=== PATIENT | female | born 1985 | race Asian ===

== ENCOUNTER 2023-10-28 10:04 | Outpatient (AMB) | payer OTHER, SELFPAY ==
--- NOTE | 2023-10-28 10:08 | A.OFFPC_ITS ---
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 Allergies No Known Allergies Allergy (Verified 10/28/23 11:02) Medication List - Last Reconciled 10/28/23 by Silas Nye MD ascorbate calcium (vitamin C) 500 mg PO DAILY folic acid 1 mg PO DAILY multivitamin 1 tab PO DAILY zinc acetate (Galzin) 50 mg PO DAILY Tobacco use date assessed: 10/28/23 Dental Screening Dental Screen Date: 10/28/23 Did you have a dental visit in the last 12 months?: No Did you have a dental problem in the last 6 months where you did not have access to dental care?: No Was dental information given to patient?: No 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 HPI Details Patient comes in today for her annual physical examination and to establish care - she is a new patient to the practice States that she moved here to the [facility] from the [facility] back in December 2021 but spent some time down in the [facility] ([place], [place]) before moving up here to [facility] She now works at the [employer] in [place] (swing shift); 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 [employer] Patient states that she is generally healthy and other than her miscarriage last January 2023, she has no significant medical or health issues and she currently feels okay She denies any headaches or dizziness Denies any chest pains, no SOB No nausea/vomiting, no abdominal pain No change in bowel habits noted She denies any acute urinary symptoms [facility] Medical History (Updated 10/28/23 @ 12:24 by Silas Nye MD) Type B blood, Rh positive History of miscarriage (~01/2023) Surgical History (Updated 10/28/23 @ 11:47 by Silas Nye MD) No pertinent past surgical history Family History Mother No problems noted. Brother No problems noted. Social History Housing: Apartment Patient Tobacco Use Status: Current someday Tobacco user Tobacco use type: Smokeless Tobacco e-Cigarette/Vaping Use: Currently Using Second Hand Smoke Exposure: Yes service: No Current occupational status: employed Cognitive needs: No Hearing needs: No Vision needs: No Questionnaire PHQ-9 Over the last 2 weeks, how often have you been bothered by any of the following problems? 1. Little interest or pleasure in doing things: not at all 2. Feeling down, depressed, or hopeless: not at all 3. Trouble falling or staying asleep, or sleeping too much: not at all 4. Feeling tired or having little energy: not at all 5. Poor appetite or overeating: not at all 6. Feeling bad about yourself - or that you are a failure or have let yourself or your family down: not at all 7. Trouble concentrating on things, such as reading the newspaper or watching television: not at all 8. Moving or speaking so slowly that other people could have noticed. Or the opposite - being so fidgety or restless that you have been moving around a lot more than usual: not at all 9. Thoughts that you would be better off or of hurting yourself in some way: not at all Total score: 0 Depression Screening Interpretation: Negative Depression Screening Done: Yes 78987 - PHQ-9 Billing: Yes Source: Developed by Drs. Anthony Tan, Irene Miller, Migue Cortez and colleagues, with an educational fernando from [employer]. Thrive Questionnaire Date Thrive assessed: 10/28/23 I am a: Patient What is your living situation today?: I have a steady place to live Within the past 12 months, did the food you bought not last and you didn't have the money to get more?: Never true Within the past 12 months, did you worry whether your food would run out before you got money to buy more?: Never true Do you have trouble paying for medicines?: No Do you have trouble getting transportation to medical appointments?: No Do you have trouble paying your heating and electricity bill?: No Do you have trouble taking care of your child, family member or friend?: No Do you have trouble with day-to-day activities such as bathing, preparing meals, shopping, managing finances, etc.?: No Are you currently unemployed and looking for a job?: No Are you interested in more education?: No Currently or been in a relationship where the following occur: no concerns reported THRIVE Score: 0 AUDIT C Alcohol Use Questionnaire (AUDIT-C) 1. How often do you have a drink containing alcohol?: Monthly or less 2. How many drinks containing alcohol do you have on a typical day when you are drinking?: 1 or 2 3. How often do you have six or more drinks on one occasion?: Never Total Score: 1 Score Reviewed/Action Taken: Yes ASHLYN-7 AMB Questionnaire ASHLYN-7 Date ASHLYN - 7 assessed: 10/28/23 Feeling nervous, anxious, or on edge: 0 = Not at all Not being able to stop or control worryin = Not at all Worrying too much about different things: 0 = Not at all Trouble relaxin = Not at all Being so restless that it is hard to sit still: 0 = Not at all Becoming easily annoyed or irritable: 0 = Not at all Feeling afraid as if something awful might happen: 0 = Not at all Total ASHLYN-7 score (0-4 normal; 5-9 mild; 10-14 moderate; 15-21 severe): 0 Source: Developed by Drs. Anthony Tan, Irene Miller, Migue Cortez and colleagues, with an educational fernando from [employer]. Review of Systems Const Denies chills, Denies fatigue, Denies fever(s), Denies headache(s) and Denies malaise Eyes Denies blurry vision, Denies change in vision, Denies irritation and Denies itchy eyes ENT Denies dysphagia, Denies dizziness, Denies otalgia, Denies headache(s), Denies nasal congestion, Denies neck pain, Denies odynophagia, Denies sinus pain and Denies sore throat Card Denies chest pain, Denies rapid heart rate, Denies irregular heart rhythm, Denies palpitations and Denies dyspnea Resp Denies chest congestion, Denies cough, Denies dyspnea and Denies wheezing GI Denies abdominal pain, Denies bloating, Denies constipation, Denies dysphagia, Denies heartburn, Denies diarrhea, Denies nausea, Denies odynophagia and Denies vomiting Denies hematuria, Denies urinary frequency, Denies dysuria, Denies urinary incontinence and Denies urinary urgency Musc Denies back pain, Denies arthralgias, Denies joint swelling, Denies muscle weakness and Denies neck pain Skin/Breast Denies breast pain, Denies breast mass, Denies change in pigmentation, Denies lesions, Denies rash and Denies unusual bruising Neuro Denies dizziness, Denies headache(s) and Denies paresthesias Psych Denies anxiety and Denies depression Endo Denies fatigue and Denies palpitations Moshe/Lymph Denies easy bruising Aller/Immun Denies itchy eyes and Denies wheezing Physical exam (Primary Care) Vital Signs: Last Vital Signs Pulse 70 10/28/23 10:09 BP 108/62 10/28/23 10:09 Pulse Ox 98 10/28/23 10:09 Oxygen Delivery Method Room Air 10/28/23 10:09 BMI result Body Mass Index 22.5 Tobacco/Smoking Status: Tobacco use Status Tobacco use date assessed 10/28/23 10/28/23 10:21 Patient Tobacco Use Status Current someday Tobacco 10/28/23 10:21 Tobacco use type Smokeless Tobacco 10/28/23 10:21 e-Cigarette/Vaping Use Currently Using 10/28/23 10:21 PHQ-9: PHQ-9 Score PHQ-9: Total score 0 10/28/23 10:21 Depression Screening Interpretation: Negative Thrive Assessment: Date of Thrive Assessment Date Thrive assessed 10/28/23 10/28/23 10:21 Currently or been in a relationship where the following occur: no concerns reported Const General: no acute distress, alert and awake Orientation/consciousness: patient oriented x3 HENMT Head: Yes normocephalic and Yes atraumatic Ears: external ears normal, TM's normal bilaterally and EAC's normal General nose exam: No nasal discharge present Face and sinus: Yes normal facial exam and Yes sinuses nontender Teeth and gingiva: dentition normal Throat: Yes posterior oropharynx normal and Yes tonsils normal (no TP congestion) Eyes Eyelids: Yes eyelids normal Conjunctivae: conjunctivae normal Pupils: Equal, round and reactive pupils present EOM: EOMs intact bilaterally Neck Neck: Yes no lymphadenopathy and Yes supple Thyroid: Thyroid normal Resp Auscultation: clear to auscultation bilaterally, no rales and no wheezes Cardio Rate: regular rate Rhythm: regular rhythm Heart sounds: no murmurs GI Palpation (GI): Soft to palpation, nontender and No hepatosplenomegaly present Auscultation: normal bowel sounds General: Yes no CVA tenderness Back/Spine/Pelvis Back: no CVA tenderness Thoracic/Lumbar Spine: thoracic and lumbar spine normal to inspection Skin Lesions: no lesions Rashes: no rashes Neuro General: patient oriented x3, moves all extremities, no focal motor deficits and CN's II-XI intact bilaterally Cranial nerves: Yes Equal, round and reactive pupils present Cognition (Neuro): normal cognition Gait exam (Neuro): Normal gait present Extrem General: Yes no clubbing, cyanosis or edema Assessment and Plan Assessment & Plan (1) Annual physical exam: Code(s): Z00.00 - Encounter for general adult medical examination without abnormal findings Plan: Check labs - patient is advised that we will reach out to her if any of her labs come back with unusual or unexpected results Have also discussed with patient that she should perform self breast exam regularly and as she has no increased risks, can start annual mammography at 41 yrs of age as per current recommendations (2) History of miscarriage: Code(s): Z87.59 - Personal history of other complications of , childbirth and the puerperium Plan: Patient suffered a miscarriage back in January 2023, which appeared to be due to premature rupture of membranes and chorioamnionitis She has been advised to see OB immediately for exam if she plans to have children and gets again (3) Cervical cancer screening: Code(s): Z12.4 - Encounter for screening for malignant neoplasm of cervix Plan: She is requesting for a referral to gynecology for routine pap smear and gynecology exam - [facility] Plan To return in 1 year for her next annual physical examination Orders: Orders Complete Blood Count Auto Diff Today D64.9 - Anemia, unspecified, Z00.00 - Encounter for general adult medical examination without abnormal findings Comprehensive Met. Panel Today Z00.00 - Encounter for general adult medical examination without abnormal findings Vitamin D 25-OH Total Today E55.9 - Vitamin D deficiency, unspecified, Z00.00 - Encounter for general adult medical examination without abnormal findings Cholesterol Today Z00.00 - Encounter for general adult medical examination without abnormal findings TSH reflex Free T4 Today E78.00 - Pure hypercholesterolemia, unspecified, Z00.00 - Encounter for general adult medical examination without abnormal findings UA CC w/rflx Micro + Cult Today R30.0 - Dysuria, Z00.00 - Encounter for general adult medical examination without abnormal findings Referrals INVESTMENT BANKING MANAGER Referral Z12.4 - Encounter for screening for malignant neoplasm of cervix Coding Level of Care Code New Pt Prev Care 18-39yr([id number] Diagnoses Annual physical exam Z00.00 History of miscarriage Z87.59 Cervical cancer screening Z12.4
[2023-10-28 10:09] VITALS: BP 108/62; PULSE 70; O2SAT 98; BMI 22.5
== END 2023-10-28 11:23 | disposition home or self-care (01) ==
PROVIDERS: PCP Internal Medicine; Visit Provider Internal Medicine
DX: Z00.00 Encounter for general adult medical examination without abnormal findings (principal); Z87.59 Personal history of other complications of pregnancy, childbirth and the puerperium; Z12.4 Encounter for screening for malignant neoplasm of cervix
CPT/HCPCS: 99385

== ENCOUNTER 2023-10-28 11:30 | Outpatient (REF) | payer OTHER, SELFPAY ==
[2023-10-28 12:35] LABS: MANUAL DIFF FLAG NO
[2023-10-28 12:39] LABS: Basophils Percent Auto 0.6 % (0-2); Eosinophils Absolute Auto 0.2 X10*3/uL (0.0-0.4); Eosinophils Percent Auto 2.1 % (0-4); Hematocrit 43.4 % (37.0-47.0); Hemoglobin 14.9 g/dl (12.0-16.0); Imm Gran Abs Auto 0.03 X10*3/uL (0.00-0.03); Imm Gran Pct Auto 0.4 % (0.0-0.4); Lymphocytes Absolute Auto 1.5 X10*3/uL (1.2-4.9); Mean Corpuscular HGB Conc 34.3 g/dl (31.0-35.0); Mean Corpuscular Hemoglobin 30.4 pg (27.0-33.0); Mean Corpuscular Volume 88.6 fL (80.0-98.0); Mean Platelet Volume 9.1 fL (9.4-12.3); Monocytes Absolute Auto 0.5 X10*3/uL (0.1-1.2); Neutrophils Absolute Auto 4.9 x10*3/uL (2.0-8.3); Neutrophils Percent Auto 68.9 % (45-73); Platelet Count 291 X10*3/uL (160-400); Red Cell Distribution Width 12.4 % (11.0-16.0); White Blood Count 7.2 X10*3/uL (4.8-10.8)
[2023-10-28 12:44] LABS: Appearance Urine Clear; Color Urine Yellow; Glucose Urine UA Negative (Negative); Leukocyte Esterase Urine Negative (Negative); Nitrite Urine Negative (Negative); Urine Blood Negative (Negative); Urine Ketones Negative (Negative); Urine Protein Negative (Neg-Trace)
[2023-10-28 13:54] LABS: Alanine Aminotransferase 19 U/L (0-31); Albumin Level 4.4 g/dL (3.5-5.0); Alkaline Phosphatase 41 U/L (39-117); Anion Gap 11 (12-20); Aspartate Amino Transferase 22 U/L (5-31); Bilirubin Total 0.3 mg/dL (0.0-1.0); Blood Urea Nitrogen 10 mg/dL (9-16); Calcium 9.3 mg/dL (8.4-10.2); Carbon Dioxide 24 mmol/L (22-29); Chloride 108 mmol/L (96-108); Cholesterol 191 mg/dL (<200); Estimated Glomerular Filt Rate > 60; Glucose Random 88 mg/dL (60-115); Potassium 4.4 mmol/L (3.3-5.1); Sodium 139 mmol/L (135-145); Total Protein 7.9 g/dL (6.5-8.0)
[2023-10-28 14:02] LABS: TSH reflex Free T4 0.58 uIU/mL (0.32-4.0)
== END 2023-10-28 11:31 | disposition home or self-care (01) ==
LOC: HO.LAB 11:30
PROVIDERS: PCP Internal Medicine; Visit Provider Internal Medicine
DX: Z00.00 Encounter for general adult medical examination without abnormal findings (principal); D64.9 Anemia, unspecified; R30.0 Dysuria; E55.9 Vitamin D deficiency, unspecified; E78.00 Pure hypercholesterolemia, unspecified
CPT/HCPCS: 36415; 80053; 81003; 82306; 82465; 84443; 85025

== ENCOUNTER 2023-12-23 10:25 | Outpatient (AMB) | payer OTHER, SELFPAY ==
--- NOTE | 2023-12-23 10:34 | MHC.OFFVIS ---
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 She immigrated from the [facility] a year to go she and her are seeking they got within the last year. Her is a nurse at [facility] she works at the [employer] in the [employer] she works swing shift. he works nights. She is seeking and taking vitamins with folic acid. Last January she had ruptured membranes in the middle of the night around 19 weeks and ended up at [facility] with an infection and lost the . When I shared with her that if she became again she should immediately seek care at [facility] in case she needed a cerclage she says that they told her the exact same thing at [facility].. Before she left the [facility] she was seen by many OB GYNs and she said that when she was getting and seeking a the oil field worker there gave her letrozole to take on the 2nd day of her menstrual cycle every month in order to help her get . She has 26-29 day cycles she follows it on her in the sathish can tell when she is ovulating but she is not quite sure though she does on questioning think that she gets what I described as fertile type mucus. She is otherwise healthy [facility] Medical History Type B blood, Rh positive History of miscarriage (~01/2023) Surgical History No pertinent past surgical history Family History Mother No problems noted. Brother No problems noted. Social History Housing: Apartment Patient Tobacco Use Status: Current someday Tobacco user Tobacco use type: Smokeless Tobacco e-Cigarette/Vaping Use: Currently Using Second Hand Smoke Exposure: Yes service: No Current occupational status: employed Cognitive needs: No Hearing needs: No Vision needs: No Female Reproductive History Menstrual Age of Menarche: 14 Duration of menses: 3-5 days Date of last menstrual period: 11/30/23 control method: none Total pregnancies: 1 Date of last pap smear: 07/26/21 (neg.per pt) History of abnormal pap smear: No Physical Exam Vital Signs: Last Vital Signs BP 118/68 12/23/23 10:38 BMI result Body Mass Index 23.8 Const General: healthy appearing, comfortable, no acute distress, well developed and alert Nutritional Appearance: average body habitus Orientation/consciousness: patient oriented x3 Limitations: no limitations HEENT Head: Yes normocephalic Neck Neck: Yes normal visual inspection Chest Chest palpation & inspection: normal inspection of the chest Breast/axilla inspection: normal inspection of the breasts and normal inspection of the axillae Breast/axilla palpation: normal palpation of the breasts and normal palpation of the axillae Resp Effort & Inspection: normal respiratory effort GI Inspection: Yes normal to inspection, No Abdominal wall edema and No distended Palpation (GI): Soft to palpation and nontender Other: Normal limits multiparous cervix pink smooth mobile nontender uterus feels slightly bulky retroverted versus shortened. Mobile nontender adnexa nontender good tone with Kegel. We will obtain ultrasound to assess for fibroids. General: Yes bladder normal to palpation External Female Exam: normal external appearance and normal appearance of the urethra Speculum Exam - Vagina: normal appearance of the vagina, normal palpation and normal vaginal discharge Speculum Exam - Cervix: normal appearance of the cervix, normal palpation and nontender Bimanual exam- vagina & uterus: normal bimanual exam, normal palpation, uterine size normal, bladder normal to palpation, consistency normal, normal palpation, uterine mobility normal, uterine shape normal, No Cervical tenderness present, non-tender and no cervical motion tenderness Bimanual Exam- Adnexa, other: normal adnexae, no masses, normal and No adnexal tenderness Neuro General: patient oriented x3 Assessment & Plan Assessment & Plan (1) History of miscarriage: Onset Date: ~01/2023 Comment: 01/2023 - premature rupture of membranes (PPROM) with unknown onset of labor; leakage of amniotic fluid; chorioamnionitis; Patient seeking highly recommend patient care [facility] immediately discovery of and seek assessment for cervical incompetency. Code(s): Z87.59 - Personal history of other complications of , childbirth and the puerperium Category: Medical (2) Cervical cancer screening: Code(s): Z12.4 - Encounter for screening for malignant neoplasm of cervix Category: Medical (3) Well woman exam with routine gynecological exam: Code(s): Z01.419 - Encounter for gynecological examination (general) (routine) without abnormal findings Category: Medical (4) Bulky or enlarged uterus: Comment: vs only retroverted Code(s): N85.2 - Hypertrophy of uterus Category: Medical (5) Patient desires : Code(s): Z31.9 - Encounter for procreative management, unspecified Category: Medical Plan 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 She immigrated from the [facility] a year to go she and her are seeking they got within the last year. Her is a nurse at [facility] she works at the [employer] in the [employer] she works swing shift. he works nights. She is seeking and taking vitamins with folic acid. Last January she had ruptured membranes in the middle of the night around 19 weeks and ended up at [facility] with an infection and lost the . When I shared with her that if she became again she should immediately seek care at [facility] in case she needed a cerclage she says that they told her the exact same thing at [facility].. Before she left the [facility] she was seen by many OB GYNs and she said that when she was getting and seeking a the oil field worker there gave her letrozole to take on the 2nd day of her menstrual cycle every month in order to help her get . She has 26-29 day cycles she follows it on her in the sathish can tell when she is ovulating but she is not quite sure though she does on questioning think that she gets what I described as fertile type mucus. She is otherwise healthy,. I am ordering a pelvic ultrasound to double check on her uterus and ensure that there was no fibroid or any other issue as it does feel slightly bulky. It may just be small and retroverted. We will have a visit after to review. I recommend she continue with the vitamins I told her that if she needed or was interested in seeking advice for infertility and infertility drugs she would definitely need to seek care at [facility] to have this kind of discussion and also in additionally if she does get she should immediately seek care at [facility] and I gave her a list of practices. The reason this is so important for her is because of her particular history with the P prom at 19 weeks with results to chorioamnionitis with 5 day hospitalization then loss at 19 weeks. If it was assessed early in her that she was in need of a cervical cerclage that would need to be assessed and accomplished extremely early in the and attempting transfer of care, if she initiated care here, would prevent getting there in time. I will see her after the ultrasound to review it I also reviewed with her signs and symptoms of ovulation and suggest she take advantage of it she is most likely in luteal phase currently. Orders: Orders US pelvic and transvaginal Today N85.2 - Hypertrophy of uterus, Z01.419 - Encounter for gynecological examination (general) (routine) without abnormal findings, Z12.4 - Encounter for screening for malignant neoplasm of cervix, Z87.59 - Personal history of other complications of , childbirth and the puerperium Coding Level of Care Code Est Pt Prev Care 18-39y([id number]) Diagnoses History of miscarriage Z87.59 Cervical cancer screening Z12.4 Well woman exam with routine gynecological exam Z01.419 Bulky or enlarged uterus N85.2 Patient desires Z31.9
[2023-12-23 10:38] VITALS: BP 118/68; BMI 23.8
== END 2023-12-23 11:37 | disposition home or self-care (01) ==
LOC: HO.HWSM 10:25
PROVIDERS: PCP Internal Medicine; Visit Provider Advanced Practice Midwife
DX: Z01.419 Encounter for gynecological examination (general) (routine) without abnormal findings (principal); N85.2 Hypertrophy of uterus; Z31.9 Encounter for procreative management, unspecified
CPT/HCPCS: 99395

== ENCOUNTER 2023-12-23 10:25 | Outpatient (REF) | payer OTHER, SELFPAY ==
[2023-12-24 06:48] LABS: CT PCR NOT DETECTED (Not Detect.); NG PCR NOT DETECTED (Not Detect.)
[2023-12-24 11:36] LABS: Bacterial Vaginosis PCR NEGATIVE (Negative); Candida Group PCR NOT DETECTED (Not Detect); Candida glab krusei PCR NOT DETECTED (Not Detect); Trichomonas vaginalis PCR NOT DETECTED (Not Detect)
[2023-12-27 14:54] LABS: HPV mRNA E6/E7 Not Detected (Not Detected)
== END 2023-12-23 10:26 | disposition home or self-care (01) ==
LOC: HO.LAB 10:25
PROVIDERS: PCP Internal Medicine; Visit Provider Advanced Practice Midwife
DX: N89.8 Other specified noninflammatory disorders of vagina (principal); Z20.2 Contact with and (suspected) exposure to infections with a predominantly sexual mode of transmission; Z11.51 Encounter for screening for human papillomavirus (HPV)
CPT/HCPCS: 0352U; 36415; 87491; 87591; 87624; 88175

== ENCOUNTER 2023-12-30 11:38 | Outpatient (REF) | payer OTHER, SELFPAY ==
--- NOTE | ~2023-12-30 | US_ITS ---
EXAMINATION: US PELVIS CLINICAL INFORMATION: General routine, last menstrual period 12/25/2023, denies pain. COMPARISON: None available. TECHNIQUE: Ultrasound of the pelvis is performed using both transabdominal and transvaginal transducers along with Doppler. Transvaginal imaging is performed due to inadequate visualization transabdominally. FINDINGS: The uterus is retroverted and measures 11.1 x 5.4 x 7.6 cm. Endometrial thickness is 6 mm. Right ovary measures 3.2 x 1.6 x 1.7 cm, volume 4.6 mL. Left ovary measures 3.8 x 1.5 x 1.9 cm, volume 5.7 mL. No significant free fluid. Nabothian cysts in the cervix. Tiny echogenic foci in the endometrium and lower uterine segment of uncertain etiology, possibly calcifications. Diffusely heterogeneous uterine echotexture, although no discrete fibroids could be appreciated. Visualization of the uterus and endometrium is limited due to uterine retropositioning. US/US pelvic and transvaginal IMPRESSION: 1. Endometrial thickness is 6 mm. 2. Diffusely heterogeneous uterine echotexture, although no discrete fibroids could be appreciated. Visualization of the uterus and endometrium is limited due to uterine retropositioning. 3. Tiny echogenic foci in the endometrium and lower uterine segment of uncertain etiology, possibly calcifications. 4. Nabothian cysts in the cervix. 5. Unremarkable bilateral ovaries. Electronically signed by: Razia Allen MD 01/11/2024 10:23 AM EDT
== END 2023-12-30 11:39 | disposition home or self-care (01) ==
LOC: HO.US 11:38
PROVIDERS: PCP Internal Medicine; Visit Provider Advanced Practice Midwife
DX: N85.2 Hypertrophy of uterus (principal); Z87.59 Personal history of other complications of pregnancy, childbirth and the puerperium
CPT/HCPCS: 76830; 76856

== ENCOUNTER 2024-01-20 14:06 | Outpatient (AMB) | payer OTHER, SELFPAY ==
[2024-01-20 14:15] VITALS: BP 118/62; BMI 23.8
--- NOTE | 2024-01-20 14:15 | MHC.OFFVIS ---
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 I have ordered it because I could not tell for sure if her uterus is enlarged or simply just retroverted. She has a complicated loss history with an early miscarriage in also a loss at 19 weeks. She was told there was an infection but her labor started with ruptured membranes and then proceeded later on to delivery and she was told she had an infection. She was told the future she would need to start care very early so she could get a stitch in her cervix to prevent this happening again she and her have been trying for 5 years and I informed her the last visit that she should immediately call [facility] [place] and try to be seen by a reproductive services there. So today we reviewed the ultrasound and also her negative Pap smear. Additionally there was teaching done about the possibility of an incompetent cervix and how infection can said in once rep membranes rupture or possibly infection can be the precipitating cause of the water breaking in the 1st place and it would be hard to say but all of this information should be shared with whoever she sees at [facility] [place] and she should proceed there as soon as she can and she has good records of her menses and has been keeping track her shortest cycle was 26 days and she has information with her periods on her sathish but she also maintains it on a paper calendar at home so if it disappears from the sathish she has her backup. She worked a long 12 hour shift last night and is very tired in we will be going back to work tonight and then will be off tomorrow. [facility] Medical History Type B blood, Rh positive History of miscarriage (~01/2023) Surgical History No pertinent past surgical history Family History Mother No problems noted. Brother No problems noted. Social History Housing: Apartment Patient Tobacco Use Status: Current someday Tobacco user Tobacco use type: Smokeless Tobacco e-Cigarette/Vaping Use: Currently Using Second Hand Smoke Exposure: Yes service: No Current occupational status: employed Cognitive needs: No Hearing needs: No Vision needs: No Female Reproductive History Menstrual Age of Menarche: 14 Date of last menstrual period: 12/25/23 control method: none Physical Exam Vital Signs: Last Vital Signs BP 118/62 01/20/24 14:15 BMI result Body Mass Index 23.8 Results Reviewed Results Reviewed: Patient: Ricky Rubio MR#: [id number] : 1985 Acct:[id number] Age/Sex: 38 / F ADM Date: 12/30/23 Loc: HO.US Attending Dr: Jaycee Becker CNM Ordering Physician: Jaycee Becker CNM Date of Service: 12/30/23 Procedure(s): US pelvic and transvaginal Accession Number(s): [id number] cc: Silas Nye MD; Jaycee Becker CNM~ EXAMINATION: US PELVIS CLINICAL INFORMATION: General routine, last menstrual period 12/25/2023, denies pain. COMPARISON: None available. TECHNIQUE: Ultrasound of the pelvis is performed using both transabdominal and transvaginal transducers along with Doppler. Transvaginal imaging is performed due to inadequate visualization transabdominally. FINDINGS: The uterus is retroverted and measures 11.1 x 5.4 x 7.6 cm. Endometrial thickness is 6 mm. Right ovary measures 3.2 x 1.6 x 1.7 cm, volume 4.6 mL. Left ovary measures 3.8 x 1.5 x 1.9 cm, volume 5.7 mL. No significant free fluid. Nabothian cysts in the cervix. Tiny echogenic foci in the endometrium and lower uterine segment of uncertain etiology, possibly calcifications. Diffusely heterogeneous uterine echotexture, although no discrete fibroids could be appreciated. Visualization of the uterus and endometrium is limited due to uterine retropositioning. US/US pelvic and transvaginal IMPRESSION: 1. Endometrial thickness is 6 mm. 2. Diffusely heterogeneous uterine echotexture, although no discrete fibroids could be appreciated. Visualization of the uterus and endometrium is limited due to uterine retropositioning. 3. Tiny echogenic foci in the endometrium and lower uterine segment of uncertain etiology, possibly calcifications. 4. Nabothian cysts in the cervix. 5. Unremarkable bilateral ovaries. Electronically signed by: Razia Allen MD 01/11/2024 10:23 AM EDT Dictated By: Razia Allen MD Signed By: <Electronically signed by Razia Allen MD in OV> 01/11/24 1023 DD/ 1146 TD/TT: 12/30/23 1207 Optimization Consultant: 12/23/23 pap is neg w neg hpv. Assessment & Plan Assessment & Plan (1) Bulky or enlarged uterus: Comment: vs only retroverted. PER ULTRASOUND UTERUS IS RETROVERTED... Code(s): N85.2 - Hypertrophy of uterus Category: Medical (2) Cervical cancer screening: Comment: 12/23/2023 Pap is negative with negative HPV. Code(s): Z12.4 - Encounter for screening for malignant neoplasm of cervix Category: Medical (3) History of miscarriage: Onset Date: ~01/2023 Comment: 01/2023 - premature rupture of membranes (PPROM) with unknown onset of labor; leakage of amniotic fluid; chorioamnionitis; Patient seeking highly recommend patient care [facility] immediately at discovery of a and seek assessment for cervical incompetency. Code(s): Z87.59 - Personal history of other complications of , childbirth and the puerperium Category: Medical (4) Patient desires : Code(s): Z31.9 - Encounter for procreative management, unspecified Category: Medical Plan Patient is here to review her ultrasound. I have ordered it because I could not tell for sure if her uterus is enlarged or simply just retroverted. She has a complicated loss history with an early miscarriage in also a loss at 19 weeks. She was told there was an infection but her labor started with ruptured membranes and then proceeded later on to delivery and she was told she had an infection. She was told the future she would need to start care very early so she could get a stitch in her cervix to prevent this happening again she and her have been trying for 5 years and I informed her the last visit that she should immediately call [facility] [place] and try to be seen by a reproductive services there. So today we reviewed the ultrasound and also her negative Pap smear. Additionally there was teaching done about the possibility of an incompetent cervix and how infection can said in once rep membranes rupture or possibly infection can be the precipitating cause of the water breaking in the 1st place and it would be hard to say but all of this information should be shared with whoever she sees at [facility] [place] and she should proceed there as soon as she can and she has good records of her menses and has been keeping track her shortest cycle was 26 days and she has information with her periods on her sathish but she also maintains it on a paper calendar at home so if it disappears from the sathish she has her backup. She worked a long 12 hour shift last night and is very tired in we will be going back to work tonight and then will be off tomorrow. I reviewed the ultrasound in detail which did not show any fibroids and indeed no ovarian cysts either and I reviewed her negative Pap smear reviewed her cycles in detail she is taking multivitamin with extra folic acid. She is otherwise healthy. 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 Teaching done about the mechanisms of labor and descent of membranes through the cervix (if there was an incompetent cervix at her 19 week preg)) that could lead to premature rupture and therefore chorio, and how a stitch might help, if this is the scenario. Coding Level of Care Code Est Pt Level 3 (46339) Diagnoses Bulky or enlarged uterus N85.2 Cervical cancer screening Z12.4 History of miscarriage Z87.59 Patient desires Z31.9
== END 2024-01-20 14:52 | disposition home or self-care (01) ==
PROVIDERS: PCP Internal Medicine; Visit Provider Advanced Practice Midwife
DX: N85.2 Hypertrophy of uterus (principal); Z12.4 Encounter for screening for malignant neoplasm of cervix; Z87.59 Personal history of other complications of pregnancy, childbirth and the puerperium
CPT/HCPCS: 99213

== ENCOUNTER → 2024-01-20 14:06 | Outpatient (BNVA) | payer OTHER, SELFPAY | PROVIDERS: PCP Internal Medicine; Visit Provider Advanced Practice Midwife | DX: N85.2 Hypertrophy of uterus (principal); Z31.9 Encounter for procreative management, unspecified; Z87.59 Personal history of other complications of pregnancy, childbirth and the puerperium | CPT/HCPCS: 99212 ==

== ENCOUNTER 2025-03-12 15:00 | Outpatient (AMB) | payer OTHER, SELFPAY ==
[2025-03-12 15:12] VITALS: BP 142/80; PULSE 100; RESP 18; TEMP 36.2; O2SAT 99; BMI 24.8
--- NOTE | 2025-03-12 15:12 | A.OFFPC_ITS ---
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 Accompanied by: Self / Same As Patient Allergies seafood Allergy (Mild, Verified 03/12/25 15:37) Rash Medication List - Last Reconciled 03/12/25 by JONATHAN Yoon ascorbate calcium (vitamin C) 500 mg PO DAILY folic acid 1 mg PO DAILY multivitamin 1 tab PO DAILY zinc acetate (Galzin) 50 mg PO DAILY Tobacco use date assessed: 03/12/25 Dental Screening Dental Screen Date: 03/12/25 Did you have a dental visit in the last 12 months?: No Did you have a dental problem in the last 6 months where you did not have access to dental care?: No Was dental information given to patient?: No HPI Annual physical HPI Details Dentist: not in a while Eye: In a while Snellen: Right: Left: Corrected vision:no STI screening: Colonoscopy:n/a Pap Smer: last year, 2023 PHQ-9: Flu: up to date COVID: none Tdap: 2022- Diet: regular Exercise: sometimes, she works out, she is on her feet at work The patient is a 39-year-old female presenting for an annual check-up and preconception counseling. She reports that she and her are trying to conceive a third child. She was previously advised that for her next , a cervical cerclage would be necessary at 12 or 13 weeks. She reports her menstrual cycle is regular, occurring every 26 to 28 days. Regarding health maintenance, her last Pap smear was performed last year. Her last dental visit was in 2019. She has not had an eye exam in a long time and does not wear glasses. She is taking folic acid, a multivitamin with zinc, and vitamin D. Her immunizations are current, having received a tetanus (Td) shot and MMR in 2022 for immigration purposes, and a flu vaccine in April. She has not received any COVID vaccines. Her blood pressure was noted to be slightly elevated, which she attributes to recent coffee consumption. She does not follow a special diet and her job requires standing and walking. [facility] Medical History Type B blood, Rh positive History of miscarriage (~01/2023) Surgical History No pertinent past surgical history Family History Mother No problems noted. Brother No problems noted. Social History Housing: Apartment Patient Tobacco Use Status: Current someday Tobacco user Tobacco use type: Smokeless Tobacco e-Cigarette/Vaping Use: Currently Using Second Hand Smoke Exposure: Yes service: No Current occupational status: employed Cognitive needs: No Hearing needs: No Vision needs: No Female Reproductive History Menstrual Age of Menarche: 14 Questionnaire PHQ-9 Over the last 2 weeks, how often have you been bothered by any of the following problems? 1. Little interest or pleasure in doing things: not at all 2. Feeling down, depressed, or hopeless: not at all 3. Trouble falling or staying asleep, or sleeping too much: several days 4. Feeling tired or having little energy: several days 5. Poor appetite or overeating: not at all 6. Feeling bad about yourself - or that you are a failure or have let yourself or your family down: not at all 7. Trouble concentrating on things, such as reading the newspaper or watching television: not at all 8. Moving or speaking so slowly that other people could have noticed. Or the opposite - being so fidgety or restless that you have been moving around a lot more than usual: not at all 9. Thoughts that you would be better off or of hurting yourself in some way: not at all Total score: 2 Depression Screening Interpretation: Negative Depression Screening Done: Yes Source: Developed by Drs. Anthony Tan, Irene Miller, Migue Cortez and colleagues, with an educational fernando from [employer]. Thrive Questionnaire Date Thrive assessed: 02/25/25 I am a: Patient What is your living situation today?: I have a steady place to live Within the past 12 months, did the food you bought not last and you didn't have the money to get more?: Never true Within the past 12 months, did you worry whether your food would run out before you got money to buy more?: Never true Do you have trouble paying for medicines?: No Do you have trouble getting transportation to medical appointments?: No Do you have trouble paying your heating and electricity bill?: No Do you have trouble taking care of your child, family member or friend?: No Do you have trouble with day-to-day activities such as bathing, preparing meals, shopping, managing finances, etc.?: No Are you currently unemployed and looking for a job?: No Are you interested in more education?: Yes Please select the resources that you would like help with: None Currently or been in a relationship where the following occur: No concerns reported THRIVE Score: 0 ASHLYN-7 AMB Questionnaire ASHLYN-7 Date ASHLYN - 7 assessed: 10/28/23 Source: Developed by Drs. Anthony Tan, Irene Miller, Migue Cortez and colleagues, with an educational fernando from [employer]. Review of Systems Const Denies chills, Denies fatigue, Denies fever(s), Denies headache(s) and Denies malaise Eyes Denies blurry vision, Denies change in vision, Denies irritation and Denies itchy eyes ENT Denies dysphagia, Denies dizziness, Denies otalgia, Denies headache(s), Denies nasal congestion, Denies neck pain, Denies odynophagia, Denies sinus pain and Denies sore throat Card Denies chest pain, Denies rapid heart rate, Denies irregular heart rhythm, Denies palpitations and Denies dyspnea Resp Denies chest congestion, Denies cough, Denies dyspnea and Denies wheezing GI Denies abdominal pain, Denies bloating, Denies constipation, Denies dysphagia, Denies heartburn, Denies diarrhea, Denies nausea, Denies odynophagia and Denies vomiting Denies hematuria, Denies urinary frequency, Denies dysuria, Denies urinary incontinence and Denies urinary urgency Musc Denies back pain, Denies arthralgias, Denies joint swelling, Denies muscle weakness and Denies neck pain Skin/Breast Denies breast pain, Denies breast mass, Denies change in pigmentation, Denies lesions, Denies rash and Denies unusual bruising Neuro Denies dizziness, Denies headache(s) and Denies paresthesias Psych Denies anxiety and Denies depression Endo Denies fatigue and Denies palpitations Moshe/Lymph Denies easy bruising Aller/Immun Denies itchy eyes and Denies wheezing Physical exam (Primary Care) Vital Signs: Last Vital Signs Temp 97.1 F 03/12/25 15:12 Pulse 100 03/12/25 15:12 Resp 18 03/12/25 15:12 BP 142/80 H 03/12/25 15:12 Pulse Ox 99 03/12/25 15:12 Oxygen Delivery Method Room Air 03/12/25 15:12 BMI result Body Mass Index 24.8 Tobacco/Smoking Status: Tobacco use Status Tobacco use date assessed 03/12/25 03/12/25 15:18 Patient Tobacco Use Status Current someday Tobacco 03/12/25 15:18 Tobacco use type Smokeless Tobacco 03/12/25 15:18 e-Cigarette/Vaping Use Currently Using 03/12/25 15:18 PHQ-9: PHQ-9 Score PHQ-9: Total score 2 03/12/25 15:20 Depression Screening Interpretation: Negative Thrive Assessment: Date of Thrive Assessment Date Thrive assessed 02/25/25 03/12/25 15:18 Currently or been in a relationship where the following occur: No concerns reported Const General: no acute distress, alert and awake Orientation/consciousness: patient oriented x3 HENMT Head: Yes normocephalic and Yes atraumatic Ears: external ears normal, TM's normal bilaterally and EAC's normal General nose exam: No nasal discharge present Face and sinus: Yes normal facial exam and Yes sinuses nontender Teeth and gingiva: dentition normal Throat: Yes posterior oropharynx normal and Yes tonsils normal (no TP congestion) Eyes Eyelids: Yes eyelids normal Conjunctivae: conjunctivae normal Pupils: Equal, round and reactive pupils present EOM: EOMs intact bilaterally Neck Neck: Yes no lymphadenopathy and Yes supple Thyroid: Thyroid normal Resp Auscultation: clear to auscultation bilaterally, no rales and no wheezes Cardio Rate: regular rate Rhythm: regular rhythm Heart sounds: no murmurs GI Palpation (GI): Soft to palpation, nontender and No hepatosplenomegaly present Auscultation: normal bowel sounds General: Yes no CVA tenderness Back/Spine/Pelvis Back: no CVA tenderness Thoracic/Lumbar Spine: thoracic and lumbar spine normal to inspection Skin Lesions: no lesions Rashes: no rashes Neuro General: patient oriented x3, moves all extremities, no focal motor deficits and CN's II-XI intact bilaterally Cranial nerves: Yes Equal, round and reactive pupils present Cognition (Neuro): normal cognition Gait exam (Neuro): Normal gait present Deep tendon reflexes (DTR's): Right triceps reflex intensity grade: 2+, Left triceps reflex intensity grade: 2+, Rt Biceps (C5, C6): 2+, Left biceps reflex intensity grade: 2+, Right brachioradialis reflex intensity grade: 2+, Left brachioradialis reflex intensity grade: 2+, Right patellar reflex intensity grade: 2+ and Left patellar reflex intensity grade: 2+ Extrem General: Yes no clubbing, cyanosis or edema Coding Level of Care Code Est Pt Prev Care 18-39y([id number]) Diagnoses Annual physical exam Z00.00 History of miscarriage Z87.59 Vitamin D deficiency E55.9 Time Spent (min) 35 Assessment & Plan Assessment & Plan (1) Annual physical exam: Code(s): Z00.00 - Encounter for general adult medical examination without abnormal findings Category: Medical Plan: Preventative guidelines reviewed with the patient. Labs ordered, we will advise covering completion. Patient is up-to-date for the Pap smear (2) History of miscarriage: Onset Date: ~01/2023 Comment: 01/2023 - premature rupture of membranes (PPROM) with unknown onset of labor; leakage of amniotic fluid; chorioamnionitis; Patient seeking highly recommend patient care [facility] immediately at discovery of a and seek assessment for cervical incompetency. Code(s): Z87.59 - Personal history of other complications of , childbirth and the puerperium Category: Medical Plan: She has a complicated loss history with an early miscarriage in also a loss at 19 weeks. She was referred to OBGYN by Dr. Nye last year. She was evaluated by OBGYN and She was told there was an infection but her labor started with ruptured membranes and then proceeded later on to delivery and she was told she had an infection. She was told the future she would need to start care very early so she could get a stitch in her cervix to prevent this happening again she and her have been trying for 5 years and So she was encouraged by OBGYN that she should immediately call [facility] and try to be seen by a reproductive services there. An ultrasound was ordered to rule out enlarged cervix versus retrograded, which was shown to be retrograded. Follow up with OBGYN as scheduled (3) Vitamin D deficiency: Code(s): E55.9 - Vitamin D deficiency, unspecified Category: Medical Plan: Vitamin D levels was 28 on last year labs. We will re-evaluate on ordered labs. Orders: Orders Complete Blood Count Auto Diff 03/12/25 Z00.00 - Encounter for general adult medical examination without abnormal findings Comprehensive [place]. Panel Fast 03/12/25 Z00.00 - Encounter for general adult medical examination without abnormal findings Lipid Panel 03/12/25 Z00.00 - Encounter for general adult medical examination without abnormal findings UA CC w/rflx Micro + Cult 03/12/25 Z00. - Encounter for general adult medical examination without abnormal findings Vitamin D 25-OH Total 03/12/25 Z00.00 - Encounter for general adult medical examination without abnormal findings TSH reflex Free T4 03/12/25 Z00.00 - Encounter for general adult medical examination without abnormal findings
== END 2025-03-12 15:53 | disposition home or self-care (01) ==
LOC: HO.HMCH 15:01
PROVIDERS: PCP Internal Medicine
DX: Z00.00 Encounter for general adult medical examination without abnormal findings (principal); Z87.59 Personal history of other complications of pregnancy, childbirth and the puerperium; E55.9 Vitamin D deficiency, unspecified

== ENCOUNTER 2025-03-25 14:24 | Outpatient (REF) | payer OTHER, SELFPAY ==
[2025-03-25 14:41] LABS: MANUAL DIFF FLAG NO
[2025-03-25 15:02] LABS: Hematocrit 40.7 % (37.0-47.0); Hemoglobin 13.9 g/dl (12.0-16.0); Imm Gran Abs Auto 0.03 X10*3/uL (0.00-0.03); Imm Gran Pct Auto 0.4 % (0.0-0.4); Lymphocytes Absolute Auto 2.2 X10*3/uL (1.2-4.9); Mean Corpuscular HGB Conc 34.2 g/dl (31.0-35.0); Mean Corpuscular Hemoglobin 29.4 pg (27.0-33.0); Mean Corpuscular Volume 86.2 fL (80.0-98.0); NRBC Abs Auto 0.000 X10*3/uL (0.0-0.012); NRBC Pct Auto 0.0 /100WBC (0.0-0.2); Platelet Count 321 X10*3/uL (160-400); Red Blood Count 4.72 X10*6/uL (4.20-5.50); White Blood Count 8.0 X10*3/uL (4.8-10.8)
[2025-03-25 15:07] LABS: Appearance Urine Clear; Glucose Urine UA Negative (Negative); PH 6.5 (5.0-9.0); Specific Gravity - Urine 1.015 (1.005-1.025)
[2025-03-25 15:37] LABS: Alanine Aminotransferase 18 U/L (0-31); Albumin Level 4.4 g/dL (3.5-5.0); Alkaline Phosphatase 55 U/L (39-117); Anion Gap 11 (12-20); Aspartate Amino Transferase 23 U/L (5-31); Blood Urea Nitrogen 8 mg/dL (9-16); Calcium 9.3 mg/dL (8.4-10.2); Carbon Dioxide 25 mmol/L (22-29); Chloride 106 mmol/L (96-108); Cholesterol 202 mg/dL (<200); Estimated Glomerular Filt Rate > 60; HDL Cholesterol 44 mg/dL (>40); Potassium 4.1 mmol/L (3.3-5.1); Sodium 138 mmol/L (135-145); Total Protein 7.8 g/dL (6.5-8.0); Triglycerides 123 mg/dL (<150)
== END 2025-03-25 14:25 | disposition home or self-care (01) ==
LOC: HO.LAB 14:24
PROVIDERS: PCP Internal Medicine
DX: Z00.00 Encounter for general adult medical examination without abnormal findings (principal); Z13.6 Encounter for screening for cardiovascular disorders; Z13.29 Encounter for screening for other suspected endocrine disorder
CPT/HCPCS: 36415; 80053; 80061; 81003; 82306; 84443; 85025